=== PATIENT | male | born 1975 ===

== ENCOUNTER 2025-03-05 20:23 | Emergency (ER) | payer SELFPAY ==
[~2025-03-05] VITALS: Ht 190.5 cm; Wt 99.8 kg
[2025-03-05] MEDS ORDERED: HYDROMORPHONE 1 MG/1 ML DISP.SYRIN ONE ×2 (21:21→23:04)
[2025-03-05] MEDS ORDERED: ONDANSETRON 4 MG/2 ML VIAL ONE (21:21)
[2025-03-05 21:26] LABS: PLATELET COUNT (AUTO) 313 K/uL (152-348); RED BLOOD CELL COUNT(AUTO) 6.37 MIL/uL (4.06-5.63); RED CELL DISTRIBUTION WIDTH 14.5 % (12.1-16.2); WHITE BLOOD COUNT (AUTO) 18.0 K/uL (3.6-10.2)
[2025-03-05] MEDS: HYDROMORPHONE 1 MG/1 ML DISP.SYRIN IV ONE ×2 (21:27→23:07)
[2025-03-05] MEDS: ONDANSETRON 4 MG/2 ML VIAL IV ONE (21:27)
[2025-03-05 21:41] LABS: ASPARTATE AMINOTRANSFERASE 26 U/L (15-37); CREATININE 1.3 mg/dL (0.6-1.3); SODIUM SERUM 137 mmol/L (136-145); TOTAL PROTEIN, SERUM 8.6 g/dL (6.4-8.2); UREA NITROGEN, BLOOD 18 mg/dL (7-18)
[2025-03-05] MEDS ORDERED: LABETALOL HCL 100 MG/20 ML VIAL ONE (21:53)
[2025-03-05] MEDS: LABETALOL HCL 100 MG/20 ML VIAL IV ONE (22:02)
[2025-03-05] MEDS ORDERED: SWABABLE VALVE TRANSFER SET EA MC ONE (22:28)
[2025-03-05] MEDS ORDERED: IOHEXOL 350 100 ML INFUS..BTL ONE (22:28)
[2025-03-05] MEDS ORDERED: IV NORMAL SALINE 250 ML IV ONE (22:28)
[2025-03-05] MEDS: IV NORMAL SALINE 1000 ML BAG IV ONE (22:54)
[2025-03-05 23:07] VITALS: BP 153/99
[2025-03-05 23:43] VITALS: BP 155/100; O2SAT 99
[2025-03-05] MEDS ORDERED: ONDA-243 PO (23:45)
[2025-03-05] MEDS ORDERED: OXYC-133 PO (23:45)
== END 2025-03-05 23:50 | disposition home or self-care (01) ==
LOC: ER 21:01
DX: S20.212A Contusion of left front wall of thorax, initial encounter (principal); I10 Essential (primary) hypertension; E11.65 Type 2 diabetes mellitus with hyperglycemia; R06.02 Shortness of breath; E86.0 Dehydration; Z87.891 Personal history of nicotine dependence; Z88.7 Allergy status to serum and vaccine; Z79.899 Other long term (current) drug therapy; V89.2XXA Person injured in unspecified motor-vehicle accident, traffic, initial encounter; Y93.89 Activity, other specified; Y99.9 Unspecified external cause status; Y92.239 Unspecified place in hospital as the place of occurrence of the external cause
CPT/HCPCS: 36415; 71045; 71275; 84484; 85025; A4606; A4663; J1171; J2405; J3490; J7040; Q9967